=== PATIENT | male | born 1945 | race Caucasian/White ===

== ENCOUNTER → 2019-07-11 | Outpatient (CLI) | payer MEDICARE ==
[~2019-07-11] MED LIST: CATHETER FLUSH 10 ML SYR IV PRN; HOLD METFORMIN - RECEIVED CONTRAST 20 ML VIAL IV SCH; IOHEXOL 350 MG/ML 100 ML (OMNIPAQUE 350) VIAL IV ONE; NS 100 ML (IVPB) BAG IV ONE
[2019-07-11 10:58] LABS: ALANINE AMINOTRANSFERASE 16 U/L (0-55); ALKALINE PHOSPHATASE 60 U/L (40-136); BILIRUBIN,TOTAL 0.5 MG/DL (0.1-1.0); BUN/CREATININE RATIO 15; CALCIUM 9.3 MG/DL (8.5-10.1); CARBON DIOXIDE 27 MMOL/L (21-32); CHLORIDE 99 MMOL/L (98-107); CREATININE SERUM 1.14 MG/DL (0.60-1.30); GFR ESTIMATED > 60; GLUCOSE 99 MG/DL (70-105); POTASSIUM 4.6 MMOL/L (3.6-5.0); SODIUM 138 MMOL/L (135-145)
--- NOTE | 2019-07-11 11:44 | Diagnostic Imaging Report ---
PROCEDURE: CT chest with contrast only. TECHNIQUE: Multiple contiguous axial images were obtained through the chest after administration of intravenous contrast. Auto Exposure Controls were utilized during the CT exam to meet ALARA standards for radiation dose reduction. INDICATION: Cough. FINDINGS: No comparison available. There is an ill-defined nodular area of consolidation and groundglass in the left upper lobe in keeping with an infection. There are fairly extensive additional 2-3 mm nodules throughout both lungs. No edema. No pleural effusion or pneumothorax. Heart size is normal. No pericardial effusion. Aorta is normal in caliber but there is an aberrant right subclavian artery. No axillary, supraclavicular or mediastinal lymphadenopathy. Limited views of the upper abdomen are unremarkable. There are no suspicious osseous lesions. IMPRESSION: 1. Ill-defined nodule with associated groundglass in the left upper lobe with additional fairly extensive 2-3 mm nodules throughout both lungs. I favor these findings to reflect an atypical, likely fungal pneumonia. Differential considerations would include histoplasmosis. In the absence of a known malignancy, metastatic disease would be less likely. However, short-term followup to monitor for resolution is recommended (2-3 months). Dictated by: Dictated on workstation # [id number]
== END ==
LOC: LAB FS 10:04
PROVIDERS: ATTEND Nurse Practitioner Family
DX: Z01.812 Encounter for preprocedural laboratory examination (principal); R93.89 Abnormal findings on diagnostic imaging of other specified body structures; R91.8 Other nonspecific abnormal finding of lung field
CPT/HCPCS: 36415; 71260; 80053

== ENCOUNTER → 2021-01-02 | Outpatient (CLI) | payer MEDICARE ==
[2021-01-02 13:26] LABS: BUN/CREATININE RATIO 18; CALCIUM 9.7 MG/DL (8.5-10.1); CARBON DIOXIDE 29 MMOL/L (21-32); CHLORIDE 105 MMOL/L (98-107); CREATININE SERUM 1.04 MG/DL (0.60-1.30); GFR ESTIMATED > 60; GLUCOSE 94 MG/DL (70-105); POTASSIUM 4.5 MMOL/L (3.6-5.0); SODIUM 141 MMOL/L (135-145)
[2021-01-02 13:27] LABS: ALANINE AMINOTRANSFERASE 16 U/L (0-55); ALBUMIN 4.2 GM/DL (3.2-4.5); ALKALINE PHOSPHATASE 63 U/L (40-136); BILIRUBIN,TOTAL 0.5 MG/DL (0.1-1.0); TOTAL PROTEIN 7.3 GM/DL (6.4-8.2)
--- NOTE | 2021-01-02 14:17 | Diagnostic Imaging Report ---
PROCEDURE: CT chest with contrast only. TECHNIQUE: Multiple contiguous axial images were obtained through the chest after administration of intravenous contrast. Auto Exposure Controls were utilized during the CT exam to meet ALARA standards for radiation dose reduction. INDICATION: Chronic cough, intermittent chest pain. COMPARISON with study 07/11/2019 FINDINGS: Anterolateral left upper lobe largely sub-solid pulmonary opacity that shows some progressive density although its overall dimensions are unchanged from prior. This has only a few areas of subcentimeter soft tissue density appreciable on the soft tissue windows, unchanged. 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 A few calcified pulmonary parenchymal granuloma, also stable. No effusion or pneumothorax. The ground-glassed and micronodular opacity in the left upper lobe is unchanged in size but has progressed in averaged generalized density from the prior. A few additional scattered micronodules in the left lung otherwise unchanged. No lymphadenopathy. Time course would be atypical for pneumonia but could reflect chronic fungal involvement. Neoplasm cannot be definitively excluded given the adverse change and metabolic PET CT suggested. No acute chest wall pathology. No thoracic effusion. The visualized upper abdomen shows intact adrenal glands and a nonfocal liver. IMPRESSION: Micronodular and ground-glassed lesion in the left lesions in the left upper lobe, progressed in density although unchanged in size. Consider further workup with metabolic PET CT. Additional scattered benign calcified parenchymal and elizabet granulomatous residua, chronic. No lymphadenopathy. No effusion. Negative upper abdomen. Dictated by: Dictated on workstation # [id number]
== END ==
LOC: RAD FS 12:47
PROVIDERS: ATTEND Nurse Practitioner
DX: R91.8 Other nonspecific abnormal finding of lung field (principal); R05 Cough; R07.9 Chest pain, unspecified
CPT/HCPCS: 36415; 71260; 80053

== ENCOUNTER → 2021-01-20 | Outpatient (CLI) | payer MEDICARE ==
--- NOTE | 2021-01-20 14:08 | Diagnostic Imaging Report ---
Indication: Pulmonary nodule. Serum blood glucose level at time of injection is 83 mg/dL. Patient was administered 13.4 mCi F-18 FDG intravenously in the right antecubital location and PET imaging was performed from the top of skull to mid thighs. Noncontrast CT was also performed for attenuation correction and anatomic correlation. No prior PET/CT studies available for comparison. Comparison is made with conventional CT chest from 01/02/2021. There is symmetric activity throughout the brain. The soft tissues of the neck are unremarkable. The area of ground glass and micronodular opacity in the left upper lobe noted on recent CT does not demonstrate FDG avidity. No mediastinal or hilar hypermetabolism is identified. There is physiologic activity throughout the gastrointestinal and genitourinary tracts of abdomen and pelvis. No suspicious hypermetabolism is identified. IMPRESSION: Essentially unremarkable PET/CT study. The area of micro-nodularity and ground glass opacity left upper lobe noted on recent CT does not demonstrate FDG avidity. This may represent an infectious/inflammatory process. Neoplasm still cannot be entirely excluded and continued close follow-up with CT chest is recommended to confirm stability. Dictated by: Dictated on workstation # [id number]
== END ==
LOC: RAD 09:05
PROVIDERS: ATTEND Nurse Practitioner
DX: R91.1 Solitary pulmonary nodule (principal)
CPT/HCPCS: 78815; A9552

== ENCOUNTER → 2022-11-09 | Outpatient (CLI) | payer MEDICARE ==
--- NOTE | 2022-11-09 14:01 | Diagnostic Imaging Report ---
INDICATION: History of lung cancer. COMPARISON: CT dated 01/02/2021. FINDINGS: Frontal and lateral radiographic views of the chest were obtained and show a small left basilar effusion and asymmetric elevation of the left hemidiaphragm. The lungs are otherwise clear. There is no large effusion on the right. No pneumothorax is seen on either side. The cardiac silhouette and pulmonary vasculature are within normal limits. Osseous structures show no acute abnormalities. IMPRESSION: Small left basilar effusion. Dictated by: Dictated on workstation # [id number]
== END ==
LOC: RAD FS 12:26
PROVIDERS: ATTEND Nurse Practitioner
DX: J90 Pleural effusion, not elsewhere classified (principal); C34.12 Malignant neoplasm of upper lobe, left bronchus or lung
CPT/HCPCS: 71046